=== PATIENT | female | born 1940 | race Caucasian/White ===

== ENCOUNTER 2019-05-27 15:12 | Emergency (ER) | payer OTHER ==
[~2019-05-27] VITALS: Ht 162.6 cm; Wt 70.3 kg
[2019-05-27] MEDS ORDERED: VALSARTAN-HCTZ1 EAC3 PO (15:19)
[2019-05-27] MEDS ORDERED: NORCO 5-325 TA1 EAC1 PO (18:08)
[2019-05-27 19:03] VITALS: BP 150/71
== END 2019-05-27 19:04 | disposition home or self-care (01) ==
LOC: ER 15:12
DX: S52.591A Other fractures of lower end of right radius, initial encounter for closed fracture (principal); S52.291A Other fracture of shaft of right ulna, initial encounter for closed fracture; Z88.2 Allergy status to sulfonamides; V89.2XXA Person injured in unspecified motor-vehicle accident, traffic, initial encounter; Y93.89 Activity, other specified; Y92.89 Other specified places as the place of occurrence of the external cause; Y99.8 Other external cause status